=== PATIENT | male | born 1980 | race Hispanic/Latino ===

== ENCOUNTER 2017-02-16 23:08 | Emergency (ER) | payer BC ==
[2017-02-16 23:21] VITALS: BP 144/99; PULSE 65; RESP 20; TEMP 98.5; O2SAT 99
--- NOTE | 2017-02-16 23:50 | ED PDOC ---
Lower Extremity Pain/Injury Time Seen by Provider: 02/16/17 23:19 Chief Complaint (Nursing): Lower Extremity Problem/Injury Chief Complaint (Provider): left calf pain History Per: Patient History/Exam Limitations: no limitations Onset/Duration Of Symptoms: Hrs Current Symptoms Are (Timing): Still Present Additional History Per: Patient Additional Complaint(s): 36 y/o male presents with left calf pain x 3 hours. Patient states he was playing sports and he was trying to avoid a collision so quickly shifted weight. He notes pain to upper left calf, worse with weight bearing. Denies numbness/weakness left lower extremity, swelling/deformity. Past Medical History Reviewed: Historical Data, Nursing Documentation, Vital Signs Vital Signs: Last Vital Signs Temp 98.5 F 02/16/17 23:11 Pulse 65 02/16/17 23:11 Resp 20 02/16/17 23:11 BP 144/99 H 02/16/17 23:11 Pulse Ox 99 02/16/17 23:11 - Medical History PMH: No Chronic Diseases - Surgical History Surgical History: No Surg Hx - Family History Family History: States: Unknown Family Hx - Home Medications Home Medications: Ambulatory Orders Medication Instructions Recorded Cyclobenzaprine [Cyclobenzaprine 10 mg PO BID PRN #10 tab 02/17/17 HCl] Naproxen [Naprosyn] 500 mg PO Q12 PRN #20 tablet 02/17/17 - Allergies Allergies/Adverse Reactions: Allergies Allergy/AdvReac Type Severity Reaction Status Date / Time No Known Allergies Allergy Verified 02/16/17 23:11 Review of Systems ROS Statement: Except As Marked, All Systems Reviewed And Found Negative Musculoskeletal: Positive for: Leg Pain (left calf) Physical Exam - Reviewed Nursing Documentation Reviewed: Yes Vital Signs Reviewed: Yes - Physical Exam Appears: Positive for: Well, Non-toxic, No Acute Distress Head Exam: Positive for: ATRAUMATIC, NORMAL INSPECTION, NORMOCEPHALIC Pulses-Dorsalis Pedis (L): 2+ Pulses-Dorsalis Pedis (R): 2+ Pulses-Post. Tibialis (L): 2+ Pulses-Post. Tibialis (R): 2+ Extremity: Positive for: Normal ROM, Tenderness (Tender to palpate posterior proximal left calf. Pain at proximal posterior calf with dorsi and plantar flexion. No swelling, echhymosis, deformity, color change noted. Negative strickland test b/l). Negative for: Deformity, Swelling Neurologic/Psych: Positive for: Alert, Oriented. Negative for: Motor/Sensory Deficits - ECG O2 Sat by Pulse Oximetry: 99 - Progress ED Course And Treament: Toradol IM, tramadol PO, soft tissue u/s left calf EXAM: US Left Lower Extremity Non-Vascular, Complete CLINICAL HISTORY: 36 years old, male; Injury or trauma; Injury Softball; Initial encounter; Sprain or strain; Lower leg; Left; Additional info: Left calf injury TECHNIQUE: Real-time ultrasound scan of the left lower extremity with image documentation. EXAM DATE/TIME: Exam ordered 02/16/2017 11:46 PM COMPARISON: No relevant prior studies available. FINDINGS: Soft tissues: Unremarkable. No abscess. No foreign body. Other findings: Scanning in the left calf in the area of pain demonstrates no specific abnormality. No abnormal fluid collections are identified and no mass is evident. IMPRESSION: 1. Scanning of the left calf demonstrates no specific abnormality. No mass or fluid collection. Patient educated on findings, placed in left knee immobilizer. Rx Naproxen, flexeril given. Follow up podiatry. No sports x 2 weeks. Advised RICE Return to ED for worsening/concerning symptoms. Disposition - Clinical Impression Clinical Impression: Strain of calf muscle - Disposition Referrals: Roland De La Rosa DPM [[facility]] - Disposition: Routine/Home Disposition Time: 02:25 Condition: FAIR Prescriptions: Cyclobenzaprine [Cyclobenzaprine HCl] 10 mg PO BID PRN #10 tab PRN Reason: Muscle Spasm Naproxen [Naprosyn] 500 mg PO Q12 PRN #20 tablet PRN Reason: Pain, Moderate (4-7) Instructions: Muscle Strain (ED)
--- NOTE | 2017-02-17 13:38 | US ---
Indication: Left calf injury Technique: Real-time ultrasound scan in the region of interest with image documentation Comparison: None available Findings: No discrete fluid collection or abscess identified. No specific abnormality is seen. No soft tissue mass is appreciated. Impression: Limited provided sonographic images in the region of interest (left calf) appear grossly unremarkable. Recommend dedicated cross-sectional imaging for further evaluation if indicated. Preliminary impression was provided by [facility].
== END 2017-02-17 02:26 | disposition home or self-care (01) ==
LOC: H.ER 23:08
DX: S86.812A Strain of other muscle(s) and tendon(s) at lower leg level, left leg, initial encounter (principal); X50.9XXA Other and unspecified overexertion or strenuous movements or postures, initial encounter; Y92.89 Other specified places as the place of occurrence of the external cause
CPT/HCPCS: 29530; 76881; 96372; 99285; J1885

== ENCOUNTER 2018-09-29 10:57 | Emergency (ER) | payer BC, OTHER ==
[2018-09-29 10:59] VITALS: BMI 40.1
[2018-09-29 11:00] VITALS: RESP 16; TEMP 97.8; O2SAT 100
--- NOTE | 2018-09-29 11:48 | ED PDOC ---
Upper Extremity Pain/Injury Time Seen by Provider: 09/29/18 11:27 Chief Complaint (Nursing): Upper Extremity Problem/Injury Chief Complaint (Provider): Left forearm pain, hand pain s/p fall History Per: Patient History/Exam Limitations: no limitations Onset/Duration Of Symptoms: Mins Current Symptoms Are (Timing): Still Present Quality: Dull Severity: Moderate Pain Scale Rating Of: 6 Additional Complaint(s): 38 yo male with no medical problems presents for evaluation of left forearm pain after a fall. PT states she slipped getting into shower and fell hitting, left forearm on the edge of the tube. Pt states he did not hit head or back. No LOC. Pt reports pain primarily over mid-ulna. PT denies numbness/tingling. PT also reports some pain over the 4-5 fingers and medial hand. No medication for pain [employer] Past Medical History Reviewed: Historical Data, Nursing Documentation, Vital Signs Vital Signs: Last Vital Signs Temp 97.8 F 09/29/18 10:59 Pulse 72 09/29/18 10:59 Resp 16 09/29/18 10:59 BP 125/83 09/29/18 10:59 Pulse Ox 100 09/29/18 10:59 - Medical History PMH: No Chronic Diseases - Surgical History Surgical History: No Surg Hx - Family History Family History: States: Unknown Family Hx - Living Arrangements Living Arrangements: With Family - Social History Current smoker - smoking cessation education provided: No Alcohol: None Drugs: Denies - Home Medications Home Medications: Ambulatory Orders Medication Instructions Recorded Cyclobenzaprine [Cyclobenzaprine 10 mg PO BID PRN #10 tab 02/17/17 HCl] Naproxen [Naprosyn] 500 mg PO Q12 PRN #20 tablet 02/17/17 - Allergies Allergies/Adverse Reactions: Allergies Allergy/AdvReac Type Severity Reaction Status Date / Time No Known Allergies Allergy Verified 09/29/18 11:13 Review of Systems ROS Statement: Except As Marked, All Systems Reviewed And Found Negative Constitutional: Negative for: Fever, Chills Musculoskeletal: Positive for: Other (Left arm pain, hand pain) Physical Exam - Reviewed Nursing Documentation Reviewed: Yes Vital Signs Reviewed: Yes - Physical Exam Appears: Positive for: Well, Non-toxic, No Acute Distress Head Exam: Positive for: ATRAUMATIC, NORMAL INSPECTION, NORMOCEPHALIC Skin: Positive for: Normal Color (No erythema, no ecchymosis ), Warm Eye Exam: Positive for: Normal appearance ENT: Positive for: Normal ENT Inspection Neck: Positive for: Normal, Painless ROM Cardiovascular/Chest: Negative for: Bradycardia, Tachycardia Respiratory: Negative for: Accessory Muscle Use, Respiratory Distress Pulses-Radial (L): 2+ Back: Positive for: Normal Inspection Extremity: Positive for: Normal ROM, Tenderness (Mid-ulna, left without bony deformity), Capillary Refill, Swelling, Other (Tenderness of the 4-5 metacarpals on the left ). Negative for: Deformity Neurologic/Psych: Positive for: Alert, Oriented - ECG O2 Sat by Pulse Oximetry: 100 Medical Decision Making Medical Decision Making: No acute fracture or dislocation seen on forearm or hand XR. Motrin PO for pain Disposition - Clinical Impression Clinical Impression: Hand pain, Forearm contusion - Patient ED Disposition Is Patient to be Admitted: No Counseled Patient/Family Regarding: Diagnosis, Need For Followup - Disposition Referrals: Dakota Yun MD [Staff Provider] - Disposition: Routine/Home Disposition Time: 12:46 Condition: GOOD Instructions: Muscle and Bone Pain (DC) Forms: [employer] ([place]), [facility] ED School/Work Excuse
--- NOTE | 2018-09-29 12:46 | RAD ---
PROCEDURE: Left Hand Radiographs. HISTORY: fall, 4-5 metacarpal and finger pain COMPARISON: None. FINDINGS: BONES: Normal. No fracture. JOINTS: Normal. No osteoarthritic changes. SOFT TISSUES: Normal. OTHER FINDINGS: None. IMPRESSION: Normal left hand radiographs.
--- NOTE | 2018-09-29 12:47 | RAD ---
Date of service: 09/29/2018 PROCEDURE: Radiographs of the Left Forearm HISTORY: LEft forarm pain, fell in shower hitting forearm COMPARISON: None available. TECHNIQUE: Frontal and lateral views obtained. FINDINGS: BONES: No fracture or destructive lesion. JOINT SPACES: Unremarkable. OTHER FINDINGS: None. IMPRESSION: Unremarkable radiographs of the left forearm.
[2018-09-29 13:14] VITALS: BP 122/82; PULSE 78
== END 2018-09-29 12:55 | disposition home or self-care (01) ==
LOC: H.ER 10:57
DX: M79.642 Pain in left hand (principal); S50.12XA Contusion of left forearm, initial encounter; W19.XXXA Unspecified fall, initial encounter; Y92.89 Other specified places as the place of occurrence of the external cause